=== PATIENT | female | born 2000 | race Two or more races ===

== ENCOUNTER 2022-07-26 16:09 | Emergency (ER) | payer OTHER ==
[~2022-07-26] VITALS: Ht 160 cm; Wt 80.7 kg
[2022-07-26 16:15] VITALS: BP 108/74
--- NOTE | 2022-07-26 16:45 | NUR ---
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 Patient A&Ox4, ambulatory, states works at [employer] with acute onset of pain. Patient states 9/10, stabbing/intermittent, non-radiating pain. Patient reports pain worsens with coughing and right arm raises. Patient denies n/v/d, dizziness, MARTINEZ, cold-like symptoms, SOB. Denies medications prior to arrival. Bed locked in lowest position, side rails x 1. PMH: asthma, autism Meds: Denies A: amoxicillin Sx: Denies
[2022-07-26] MEDS ORDERED: KETOROLAC 15 MG/ML VIAL IM ONE (16:50)
--- NOTE | 2022-07-26 16:53 | NUR ---
Lab at bedside
[2022-07-26] MEDS ORDERED: IBUPROFEN 600 MG TAB PO ONE (17:05)
[2022-07-26] MEDS ORDERED: ACETAMINOPHEN EXTRA STRENGTH 500 MG TAB PO ONE (17:05)
--- NOTE | 2022-07-26 17:35 | NUR ---
Patient requesting to hold off on Ibuprofen/Tylenol PO; will advise when she wants to take meds.
[2022-07-26 18:12] LABS: BASOPHILS # (AUTO) 0.1 K/uL (0.00-0.22); BASOPHILS % (AUTO) 0.8 % (0.0-2.0); EOSINOPHILS # (AUTO) 0.2 K/uL (0-0.4); EOSINOPHILS % (AUTO) 1.8 % (0.0-4.0); HEMATOCRIT 39.3 % (36-48); HEMOGLOBIN 13.3 g/dL (12.0-16.0); LYMPHOCYTES % (AUTO) 35.2 % (20.5-51.1); MEAN CORPUSCULAR HEMOGLOBIN 33 pg (27-31); MEAN CORPUSCULAR HGB CONC 34 g/dL (33-37); MEAN CORPUSCULAR VOLUME 96.4 fL (80-94); MONOCYTES # (AUTO) 0.8 K/uL (0.8-1.0); MONOCYTES % (AUTO) 9.4 % (1.7-9.3); NEUTROPHILS # (AUTO) 4.5 K/uL (1.8-7.7); NEUTROPHILS % (AUTO) 52.8 % (42.2-75.2); PLATELET COUNT (AUTO) 246 K/uL (140-450); RED BLOOD CELL COUNT(AUTO) 4.07 MIL/uL (4.20-5.40); RED CELL DISTRIBUTION WIDTH 13.7 % (11.6-13.7); WHITE BLOOD COUNT (AUTO) 8.5 K/uL (4.8-10.8)
[2022-07-26 18:36] LABS: ALBUMIN 3.5 g/dL (3.4-5.0); ANION GAP 12.6 (8-16); ASPARTATE AMINOTRANSFERASE 14 U/L (15-37); CARBON DIOXIDE 25.4 mmol/L (21-32); CHLORIDE 109 mmol/L (98-107); CREATININE 0.7 mg/dL (0.6-1.3); GFR ARICAN-AMERICAN 132 mL/min (>90); GLUCOSE 96 mg/dL (74-106); SODIUM SERUM 143 mmol/L (136-145); TOTAL BILIRUBIN 0.2 mg/dL (0.0-1.0); UREA NITROGEN, BLOOD 11 mg/dL (7-18)
--- NOTE | 2022-07-26 19:20 | NUR ---
Report and transfer of care endorsed to LATRICIA Caceres.
[2022-07-26] MEDS ORDERED: NAPR-54 PO (19:22)
[2022-07-26 19:36] VITALS: BP 128/70
== END 2022-07-26 19:35 | disposition home or self-care (01) ==
LOC: MED 16:09
DX: R07.89 Other chest pain (principal); J45.909 Unspecified asthma, uncomplicated; Z88.1 Allergy status to other antibiotic agents
CPT/HCPCS: 36415; 71045; 80053; 84484; 85025; 85379; 93005; 99285; Q0092